=== PATIENT | female | born 1940 | race Caucasian/White ===

== ENCOUNTER 2016-10-22 07:48 | Day surgery (SDC) | payer OTHER ==
[~2016-10-22] VITALS: Ht 165.1 cm; Wt 68.6 kg
[2016-10-22 08:05] VITALS: BP 162/77; PULSE 82; RESP 20; TEMP 98; O2SAT 98
[2016-10-22] MEDS ORDERED: LOSA100T2 PO (08:45)
[2016-10-22] MEDS ORDERED: TAMO20TA6 PO (08:45)
[2016-10-22] MEDS ORDERED: CALC1TAB87 PO (08:45)
[2016-10-22] MEDS ORDERED: MULT-65 PO (08:45)
[2016-10-22] MEDS ORDERED: OMEP20TA PO (08:45)
[2016-10-22] MEDS ORDERED: VITATAB11 (08:45)
[2016-10-22] MEDS ORDERED: SIMV20TA PO (08:45)
[2016-10-22] MEDS ORDERED: CALCTAB33 PO (08:45)
[2016-10-22] MEDS ORDERED: VITA500C9 CHEW (08:45)
[2016-10-22 08:47] LABS: AUTOMATED NEUTROPHIL # 3.9 TH/MM3 (1.8-7.7); BASOPHIL # 0.1 TH/MM3 (0-0.2); BASOPHIL % 1.1 % (0.0-2.0); EOSINOPHIL # 0.1 TH/MM3 (0-0.4); EOSINOPHIL % 1.9 % (0.0-4.0); HEMATOCRIT 30.6 % (35.0-46.0); HEMO FLAGS DIFF FINAL; LYMPH % 21.1 % (9.0-44.0); LYMPHOCYTE # 1.3 TH/MM3 (1.0-4.8); MEAN CELL VOLUME 105.9 FL (80.0-100.0); MEAN CORPUSCULAR HEMOGLOBIN 35.4 PG (27.0-34.0); MEAN CORPUSCULAR HGB CONC 33.5 % (32.0-36.0); MONO % 9.8 % (0.0-8.0); NEUT % 66.1 % (16.0-70.0); PLATELET COUNT 281 TH/MM3 (150-450); RED BLOOD COUNT 2.89 MIL/MM3 (4.00-5.30); RED CELL DISTRIBUTION WIDTH 13.2 % (11.6-17.2); WHITE BLOOD COUNT 5.9 TH/MM3 (4.0-11.0)
[2016-10-22] MEDS ORDERED: SODIUM CHLOR 0.9% 1000 ML IV SCH (09:00)
[2016-10-22] MEDS ORDERED: LIDOCAINE 1%/EPINEPHrine 1:100,000 SOLN 20 ML VIAL ONE (09:10)
[2016-10-22] MEDS ORDERED: SODIUM BICARB 8.4% (PED) INJ 10 MEQ/10 ML SYR ONE (09:11)
[2016-10-22 10:30] VITALS: BP 104/56; PULSE 76; RESP 20; TEMP 98; O2SAT 96
[2016-10-22 10:45] VITALS: BP 101/49; PULSE 71; RESP 20; O2SAT 93
[2016-10-22 10:48] LABS: BONE MARROW PROCESSING COMPLETE; IRON STAIN DONE; JENNER GIEMSA STAIN DONE
[2016-10-22 11:15] VITALS: BP 98/52; PULSE 71; RESP 20; O2SAT 92
[2016-10-22] MEDS ORDERED: oxyCODONE/ACETAMINOPHEN 5 MG/325 MG TAB PO PRN (11:30)
[2016-10-22 11:45] VITALS: BP 102/49; PULSE 60; RESP 20; O2SAT 100
[2016-10-22 12:15] VITALS: BP 113/79; PULSE 79; RESP 18; O2SAT 100
--- NOTE | 2016-10-22 15:57 | RADRPT ---
EXAM DATE/TIME: 10/22/2016 09:43 [place] COMPARISON: No previous studies available for comparison. INDICATIONS : Macrocytic anemia. SEDATION TIME: 20 minutes BIOPSY SITE: Right iliac MEDICATION(S): 1.) 4 mg midazolam (Versed) IV 2.) 200 mcg fentanyl (Sublimaze) IV DEVICE(S): 1.) 11 gauge Bone marrow biopsy needle MEDICAL HISTORY : Carcinoma, breast. Hypertension. SURGICAL HISTORY : Mastectomy, right. ENCOUNTER: Initial ACUITY: 1 day PAIN SCORE: 0/10 LOCATION: pelvis A total of one core specimen(s) were obtained and sent to the laboratory for pathologic evaluation. PROCEDURE: 1. CT guided bone marrow biopsy. 2. Conscious sedation with continuous EKG and oximetry monitoring. Prior to the procedure informed consent was obtained. Any appropriate prior imaging studies were rev iewed. Using automated exposure control and adjustment of the mA and/or kV according to patient size , radiation dose was kept as low as reasonably achievable to obtain optimal diagnostic quality images . The site was prepped in a sterile fashion. Full sterile technique was used, including cap, mask, kay rile gloves and gown and a large sterile sheet. Hand hygiene and 2% chlorhexidine and/or betadine/al cohol prep was utilized per protocol for cutaneous antisepsis. The skin and subcutaneous tissues wer e infiltrated with local anesthetic solution. With CT guidance the previously identified target was localized. Biopsy was performed using the presc ribed needle as above. Following biopsy marrow aspiration was performed with repeat puncture. Adequa te hemostasis was obtained with compression at the puncture site. Follow-up CT scan reveals no hemorrhage. Conscious sedation was performed with the prescribed dosages and duration as above in the presence of an independent trained radiology nurse to assist in the monitoring of the patient. EKG and oximetry remained stable throughout the procedure. The patient tolerated the procedure well and there were no complications. The patient was sent to Radiology Outpatient Unit in stable condition. CONCLUSION: 1. Uncomplicated CT guided bone marrow aspirate. 2. Uncomplicated CT guided bone marrow biopsy. Baljinder Dale MD on October 22, 2016 at 15:54 Board Certified Radiologist. This report was verified electronically.
[2016-10-22] MEDS ORDERED: MIDAZOLAM HCL 5 MG/ML VIAL (1 ML) IV PUSH ONE (17:24)
[2016-10-22] MEDS ORDERED: fentaNYL CITRATE 250 MCG/5 ML AMP IV PUSH ONE (17:26)
== END 2016-10-22 12:50 | disposition home or self-care (01) ==
LOC: HRAD 07:48 → HRIP 07:51 → HRAD 12:50
PROVIDERS: ATTEND Internal Medicine
DX: D53.9 Nutritional anemia, unspecified (principal); C50.911 Malignant neoplasm of unspecified site of right female breast; I10 Essential (primary) hypertension
CPT/HCPCS: 38221; 77012; 85025; 85097; 88184; 88185; 88237; 88264; 88280; 88305; 88311; 88313; 99152; 99153; C1830; G0364; J2250; J3010; J7030